=== PATIENT | male | born 1935 | race Caucasian/White ===

== ENCOUNTER → 2017-10-01 | Outpatient (CLI) | payer MEDICARE ==
[~2017-10-01] MED LIST: ALEVE 220MG220 MG PO; AMBIEN 10MG10 MG PO; AMBIEN10 MG PO; AMBIEN5 MG PO; ANTIBIOTIC FOR SINUS; ARTIFICIAL TEARS OP; BLOOD PRESSURE MED; CEPHALEXIN500 M1 PO; CHLORPROMAZINE25 MG PO; CIALIS20 MG PO; COZAAR 25MG25 MG/TAB PO; ELAVIL50 MG PO; FLOMAX 0.40.4 MG/CAP PO; GABAPENTIN1 CRY; GABAPENTIN100 M1 PO; GABAPENTIN300 M1 PO; GLIPIZIDE1 POW; GLIPIZIDE10 M1 PO; GLIPIZIDE5 MG PO; GLUCOPHAGE XR500 M1 PO; KEPPRA 500MG500 MG PO; KEPPRA PO; KEPPRA500 MG PO; LEVAQUIN 250MG250 MG PO; LISINOPRIL5 MG PO; LOSARTAN POTASS25 MG PO; METFORMIN ER500 MG PO; METFORMIN PO; METFORMIN500 MG PO; MIRAPEX 0.0.125 MG/T PO; MIRTAZAPINE15 MG PO; NEURONTIN300 MG/CAP PO; NEURONTIN600 MG/TAB PO; NIACIN 250250 MG/CAP PO; NIASPAN750 MG PO; NORCO 325 MG-101 TAB; NORCO 325 MG-51 TAB PO; PERCOCET 325 MG1 TA2 PO; PRAVACHOL 40MG40 MG PO; PRAVACHOL10 MG PO; PRILOSEC 20MG20 MG PO; PRILOSEC10 MG PO; PROTONIX40 MG PO; REGLAN 5MG5 MG PO; SAVELLA12.5 MG PO; TEGRETOL PO; THORAZINE25 MG PO; TRAZADONE HYDR100 MG PO; VOLTAREN1% TP; ZANTAC; ZANTAC PO; [UNRECOGNIZED DRUG - REMARK]
== END ==
LOC: ZLAB.ENT 16:42
DX: J31.0 Chronic rhinitis (principal)

== ENCOUNTER → 2018-08-29 | Outpatient (CLI) | payer MEDICARE | LOC: ZCOL.LAB 16:41 | DX: J31.0 Chronic rhinitis (principal) ==